=== PATIENT | female | born 1965 | race Caucasian/White ===

== ENCOUNTER 2016-05-12 11:55 | Emergency (ER) | payer OTHER ==
[~2016-05-12] VITALS: Ht 154.9 cm; Wt 76.4 kg
[~2016-05-12 11:55] MED LIST: METF500T4 PO
[2016-05-12 12:52] LABS: GLUCOSE,POINT OF CARE 239 MG/DL (70-110)
[2016-05-12 13:15] LABS: BASOPHILS % (AUTO) 0.3 % (0.0-2.0); EOSINOPHILS % (AUTO) 1.3 % (1.0-6.0); HEMATOCRIT 44.9 % (36-46); HEMOGLOBIN 14.7 g/dL (12.0-16.0); LYMPHOCYTES # (AUTO) 2.4 K/uL (1.0-4.8); LYMPHOCYTES % (AUTO) 34.1 % (22.0-44.0); MEAN CORPUSCULAR HEMOGLOBIN 28.4 pg (26.0-34.0); MEAN CORPUSCULAR HGB CONC 32.7 G/dL (31.0-37.0); MEAN CORPUSCULAR VOLUME 87 fL (80-100); MONOCYTES # (AUTO) 0.4 K/uL (0.1-1.0); MONOCYTES % (AUTO) 5.5 % (2.0-9.0); NEUTROPHILS # (AUTO) 4.1 K/uL (1.8-7.7); NEUTROPHILS % (AUTO) 58.8 % (40.0-70.0); PLATELET COUNT (AUTO) 223 K/uL (150-450); RED BLOOD CELL COUNT(AUTO) 5.17 MIL/uL (4.00-5.20); RED CELL DISTRIBUTION WIDTH 12.5 % (11.5-14.5)
[2016-05-12 13:21] LABS: ANION GAP 8 mmol/L (8-16); CALCIUM, TOTAL 9.2 mg/dL (8.8-10.5); CARBON DIOXIDE 30 mmol/L (22-29); CHLORIDE 102 mmol/L (98-107); CREATININE 0.75 mg/dL (0.60-1.30); GLOMERULAR FILTR. RATE CALC > 60 mL/min (>60); POTASSIUM 3.9 mmol/L (3.5-5.1); SODIUM SERUM 140 mmol/L (136-145); UREA NITROGEN, BLOOD 14 mg/dL (7-18)
[2016-05-12 13:27] LABS: ALANINE AMINOTRANSFERASE 35 U/L (12-78); ALBUMIN 3.9 g/dL (3.4-5.0); ASPARTATE AMINOTRANSFERASE 16 U/L (15-37); BILIRUBIN,TOTAL 0.7 mg/dL (0.1-1.0)
[2016-05-12] MEDS ORDERED: ONDANSETRON HCL 4 MG TABLET PO ONE (15:15)
[2016-05-12] MEDS ORDERED: ACETAMINOPHEN 500 MG TABLET PO ONE (15:15)
[2016-05-12] MEDS ORDERED: MECLIZINE HCL 25 MG TABLET PO ONE (15:15)
[2016-05-12 16:36] VITALS: BP 155/98
== END 2016-05-12 16:37 | disposition home or self-care (01) ==
LOC: EMS 11:57
DX: R42 Dizziness and giddiness (principal); R11.0 Nausea; R25.2 Cramp and spasm; E11.9 Type 2 diabetes mellitus without complications; I10 Essential (primary) hypertension
CPT/HCPCS: 80053; 82962; 85025; 93005; 99285; Q0162

== ENCOUNTER 2019-01-25 15:22 | Emergency (ER) | payer OTHER ==
[~2019-01-25] VITALS: Ht 154.9 cm; Wt 81.8 kg
[~2019-01-25 15:22] MED LIST changes: +METF-960 PO; -METF500T4 PO
[2019-01-25] MEDS ORDERED: ASPI81 PO (16:05)
[2019-01-25] MEDS ORDERED: GABA-529 PO (16:05)
[2019-01-25 16:11] LABS: GLUCOSE,POINT OF CARE 129 MG/DL (70-110)
[2019-01-25 19:09] VITALS: BP 118/67
== END 2019-01-25 19:19 | disposition home or self-care (01) ==
LOC: EMS 15:25
DX: S46.811A Strain of other muscles, fascia and tendons at shoulder and upper arm level, right arm, initial encounter (principal); E11.9 Type 2 diabetes mellitus without complications; I10 Essential (primary) hypertension; Z98.890 Other specified postprocedural states; Z79.899 Other long term (current) drug therapy; Z79.82 Long term (current) use of aspirin; W01.0XXA Fall on same level from slipping, tripping and stumbling without subsequent striking against object, initial encounter; Y93.01 Activity, walking, marching and hiking; Y92.512 Supermarket, store or market as the place of occurrence of the external cause; Y99.8 Other external cause status